=== PATIENT | male | born 1990 | race Caucasian/White ===

== ENCOUNTER 2016-12-13 10:29 | Emergency (ER) | payer OTHER ==
[~2016-12-13] VITALS: Ht 180.3 cm; Wt 80.0 kg
[~2016-12-13 10:29] MED LIST: IBUP-238 PO; METH40TA9 PO
[2016-12-13 10:43] VITALS: BP 111/56; PULSE 88; RESP 24; TEMP 98.1; O2SAT 99
[2016-12-13] MEDS ORDERED: METH40TA PO (12:11)
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
[2016-12-13] MEDS ORDERED: ACETAMINOPHEN 500 MG CPLT PO ONE (12:45)
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
[2016-12-13] MEDS ORDERED: MORPHINE SULFATE 30 MG CONTROLLED RELEASE TAB PO ONE (13:45)
[2016-12-13] MEDS ORDERED: AUGM875T3 PO (13:50)
[2016-12-13] MEDS ORDERED: METHADONE HCL 10 MG TAB PO ONE (14:30)
[2016-12-13 14:59] VITALS: RESP 18
[2016-12-14] MEDS ORDERED: AMOX875T PO (14:45)
== END 2016-12-13 15:13 | disposition home or self-care (01) ==
LOC: NEPD 10:29
DX: S02.2XXA Fracture of nasal bones, initial encounter for closed fracture (principal); S00.83XA Contusion of other part of head, initial encounter; S63.502A Unspecified sprain of left wrist, initial encounter; S93.401A Sprain of unspecified ligament of right ankle, initial encounter; S09.8XXA Other specified injuries of head, initial encounter; Y04.0XXA Assault by unarmed brawl or fight, initial encounter; Y93.9 Activity, unspecified; Y92.9 Unspecified place or not applicable; Z87.891 Personal history of nicotine dependence
CPT/HCPCS: 70450; 70486; 73110; 73610; 99285

== ENCOUNTER 2017-04-04 09:17 | Emergency (ER) | payer SELFPAY ==
[~2017-04-04] VITALS: Ht 180.3 cm; Wt 82.0 kg
[~2017-04-04 09:17] MED LIST changes: +AMOX875T PO; +AUGM875T3 PO; -IBUP-238 PO; +METH40TA PO; -METH40TA9 PO
[2017-04-04 09:18] VITALS: BP 129/74; PULSE 104; RESP 20; TEMP 98.2; O2SAT 98
[2017-04-04] MEDS ORDERED: BENZ100 PO (11:34)
[2017-04-04] MEDS ORDERED: ALBUAER3 INH (11:34)
[2017-04-04] MEDS ORDERED: AZIT250T3 PO (11:34)
--- NOTE | 2017-04-04 11:35 | PD ---
HPI Chief Complaint: Cold / Flu Symptoms Time Seen by Provider: 11:13 Travel History International Travel<30 days: No Contact w/Intl Traveler<30days: No Traveled to known affect area: No History of Present Illness HPI Patient is 27 years old. He reports cough for about 7 days. Initially he had cold and flu symptoms however they have since resolved. He has tried hot showers and nasal saline inhalers. Minimal benefit reported. No nausea vomiting or fever. Patient smokes tobacco. No chest pain. Severity moderate. 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 Tessalon Perles (Benzonatate) 100 Mg Cap 100 Mg PO TID PRN Proair Hfa 8.5 GM Inh (Albuterol Sulfate) 90 Mcg/Act Aer 2 Puff INH Q6H PRN 108 mcg/actuation Reported Methadone (Methadone HCl) 40 Mg Tab 130 Mg PO DAILY Review of Systems Except as stated in HPI: all other systems reviewed are Neg General / Constitutional: No: Fever Cardiovascular: No: Chest Pain or Discomfort Respiratory: Positive: Cough Physical Exam Narrative GENERAL: Well-nourished well-developed 27-year-old male SKIN: Warm and dry. HEAD: Atraumatic. Normocephalic. EYES: Pupils equal and round. No scleral icterus. No injection or drainage. ENT: No nasal bleeding or discharge. Mucous membranes pink and moist. NECK: Trachea midline. No JVD. CARDIOVASCULAR: Regular rate and rhythm. RESPIRATORY: Occasional wheezing. No tachypnea. GASTROINTESTINAL: Abdomen soft, non-tender, nondistended. Hepatic and splenic margins not palpable. MUSCULOSKELETAL: Extremities without clubbing, cyanosis, or edema. No obvious deformities. NEUROLOGICAL: Awake and alert. No obvious cranial nerve deficits. Motor grossly within normal limits. Five out of 5 muscle strength in the arms and legs. Normal speech. PSYCHIATRIC: Appropriate mood and affect; insight and judgment normal. Data Data Last Documented VS Vital Signs Date Time Temp Pulse Resp B/P (MAP) Pulse Ox O2 Delivery O2 Flow Rate FiO2 04/04/17 11:47 04/04/17 09:18 98.2 104 20 98 Room Air Vital signs reviewed 129/74 [facility] Medical Decision Making Medical Screen Exam Complete: Yes Emergency Medical Condition: Yes Differential Diagnosis Pneumonia, asthma, COPD Narrative Course Patient has wheezing and cough. No significant tachypnea. No hypoxia. Scripts as below. Patient ready for discharge Diagnosis Primary Impression: Post-nasal drip Additional Impression: Tobacco use Referrals: [facility] 2 days Additional Instructions: You have a choice when it comes to health care, and we are glad that you chose [facility]. Hopefully, we have met your expectations on today's visit. You are welcome to return to [facility] at any time, as we are committed to meeting the health care needs of our community. Med/Other Pt SpecificInfo: Prescription(s) given Scripts Azithromycin (Azithromycin) 250 Mg Tab 250 MG PO DIRECTED for Infection, #6 TAB 0 Refills Take 2 tabs (500 mg) on day 1 then 1 tab daily x 4 days. Prov: Yoandy Murillo MD 04/04/17 Benzonatate (Tessalon Perles) 100 Mg Cap 100 MG PO TID Y for COUGH, #15 CAP 0 Refills Prov: Yoandy Murillo MD 04/04/17 Albuterol 8.5 GM Inh (Proair Hfa 8.5 GM Inh) 90 Mcg/Act Aer 2 PUFF INH Q6H Y for COUGH, #1 INHALER 0 Refills 108 mcg/actuation Prov: Yoandy Murillo MD 04/04/17 Disposition: 01 DISCHARGE HOME Condition: Stable Yoandy Murillo MD Apr 04, 2017 11:35
== END 2017-04-04 11:48 | disposition home or self-care (01) ==
LOC: NEPD 09:17
DX: R09.82 Postnasal drip (principal); R05 Cough; F17.210 Nicotine dependence, cigarettes, uncomplicated
CPT/HCPCS: 99284